=== PATIENT | male | born 1985 | race Asian ===

== ENCOUNTER → 2018-10-11 22:32 | Emergency (ER) | payer OTHER ==
[~2018-10-11 22:32] MED LIST: Bacitracin OINTMENT* 0.5% 0.5 oz TUBE TOPICAL ONE; Tetan/Diph/Pertus SYR(Tdap)* 0.5 ML SYR(BOOSTRIX) use SYR IM ONE
[2018-10-11 22:40] VITALS: BP 115/80
--- NOTE | 2018-10-12 00:35 | ED ---
Head Injury - HPI Summary HPI Summary: 33 year old [place] male presents with injury to his nose. States he was playing tennis and accidentally struck himself in the nose with his tennis racket. Report laceration to the bridge of his nose with tenderness, swelling, and bruising. Bleeding controlled prior to arrival. No LOC. Denies headache, visual disturbances, epistaxis, nasal congestion, dizziness or lightheadedness, or other injury. Last tetanus 2007. - History Of Current Complaint Chief Complaint: EDLacSutureRecheck Stated Complaint: LAC ON NOSE PER PT FRIEND Time Seen by Provider: 10/11/18 23:42 Hx Obtained From: Patient, [employer] Dealer Pain Intensity: 3 - Allergies/Home Medications Allergies/Adverse Reactions: Allergies Allergy/AdvReac Type Severity Reaction Status Date / Time No Known Allergies Allergy Verified 10/11/18 22:41 Home Medications: Home Medications NK [No Home Medications Reported] 10/11/18 [History Confirmed 10/11/18] PMH/Surg Hx/FS Hx/Imm Hx Previously Healthy: Yes - Denies significant PMH - Immunization History Date of Tetanus Vaccine: 2007 Infectious Disease History: No Infectious Disease History: Denies: Traveled Outside the [place] in Last 30 Days - Family History Known Family History: Positive: Non-Contributory - Social History Occupation: Student Lives: Dormitory/Roommates Alcohol Use: None Substance Use Type: Reports: None Smoking Status (MU): Never Smoked Tobacco Review of Systems Constitutional: Negative Negative: Photophobia, Blurred Vision, Diplopia Negative: Epistaxis, Nasal Discharge Cardiovascular: Negative Respiratory: Negative Gastrointestinal: Negative Genitourinary: Negative Musculoskeletal: Negative Positive: Other - See HPI Negative: Headache All Other Systems Reviewed And Are Negative: Yes Physical Exam - Summary Physical Exam Summary: GENERAL APPEARANCE: Well developed, well nourished, alert and cooperative, and appears to be in no acute distress. EYES: Conjunctiva clear. No drainage. PERRL, EOM intact. Vision is grossly intact. EARS: External auditory canals and tympanic membranes clear, hearing grossly intact. NOSE: Superficial 0.8 cm linear laceration to the bridge of the nose with margins well approximated and bleeding controlled. mild swelling and ecchymosis. Mild tenderness to the nasal bone, no deformity or crepitus. No nasal discharge. THROAT: Pharynx normal No tonsilar inflammation, swelling, exudate, or lesions. Uvula midline. Oral cavity normal. Teeth and gingiva in good general condition. NECK: Neck supple, non-tender. CARDIAC: Normal S1 and S2. No S3, S4 or murmurs. Rhythm is regular. There is no peripheral edema, cyanosis or pallor. Extremities are warm and well perfused. Capillary refill is less than 2 seconds. Peripheral pulses intact. LUNGS: Clear to auscultation without rales, rhonchi, wheezing or diminished breath sounds. ABDOMEN: Positive bowel sounds. Soft, nondistended, nontender. No guarding or rebound. No masses or hepatosplenomegally. MUSKULOSKELETAL: ROM intact to all extremities. No joint erythema or tenderness. Normal muscular development. Normal gait. SKIN: Skin normal color, texture and turgor. Triage Information Reviewed: Yes Vital Signs On Initial Exam: Initial Vitals Temp Pulse Resp BP Pulse Ox 99.3 F 75 16 115/80 97 10/11/18 22:35 10/11/18 22:35 10/11/18 22:35 10/11/18 22:35 10/11/18 22:35 Vital Signs Reviewed: Yes Diagnostics - Vital Signs Vital Signs Temp Pulse Resp BP Pulse Ox 10/11/18 22:35 99.3 F 75 16 115/80 97 - Laboratory Lab Statement: Any lab studies that have been ordered have been reviewed, and results considered in the medical decision making process. Head Injury Course/Dx Course Of Treatment: 33 year old [place] male presents with injury to his nose. States he was playing tennis and accidentally struck himself in the nose with his tennis racket. Report laceration to the bridge of his nose with tenderness, swelling, and bruising. Bleeding controlled prior to arrival. No LOC. Denies headache, visual disturbances, epistaxis, nasal congestion, dizziness or lightheadedness, or other injury. Last tetanus 2007. Afebrile. VSS. Exam remarkable for a superficial 0.8 cm linear laceration to the bridge of his nose. Wound margins were in good alignment and did not require repair. There was mild tenderness, ecchymosis, and swelling to the bridge of the nose without deformity or crepitus. Discussed with patient that there is a possibility of a non-displaced fracture of the nose however treatment would not change based on radiological findings therefore x-rays were deferred at this time. His tetanus status was updated. He is to follow up with ENT in 5 days if symptoms do not improve or for any concerns regarding the injury. Wound care, anticipatory guidance, and warning symptoms were reviewed with the patient. Verbalizes understanding and agrees with POC. The entirity of this evaluation was conducted through an interpretor. - Diagnoses Differential Diagnosis/HQI/PQRI: Concussion Without LOC, Contusion, Laceration, Nasal Fracture Provider Diagnoses: Nasal laceration, Nasal contusion Discharge - Sign-Out/Discharge Documenting (check all that apply): Patient Departure Patient Received Moderate/Deep Sedation with Procedure: No - Discharge Plan Condition: Stable Disposition: HOME Patient Education Materials: Nasal Fracture (ED), Laceration (ED) Referrals: No Primary Care Phys,NOPCP [Primary Care Provider] - Missael Medina MD [Medical Doctor] - 5 Days (Follow up within 5 days if symptoms do not improve. Call for appointment.) Additional Instructions: The laceration of your nose is very superficial and does no require any repair. Clean the wound at least twice a day with a mild soap and water and then apply an antibiotic ointment such as bacitracin at least twice a day. Watch for signs of infection including fever greater than 100.5 F, redness that spreads, increased swelling, or pus draining from the wound. Seek immediate medical attention should any of these occur. I suspect that you have a contusion (bruise) of the nose. There may be a small fracture however your nose is in good alignment and there would be no further treatment even if there is a fracture. These usually heal well on their own. Apply ice to your nose for 15-20 minutes at least 4 times a day to reduce swelling. Use acetaminophen (Tylenol) or ibuprofen (Advil, Motrin) as needed for pain. Follow up with Dr. Medina, ENT, in 5 days if symptoms do not improve. Call for an appointment. Return to the emergency room if you have severe headache not managed with acetaminophen or ibuprofen, you have changes in vision, develop confusion, lose consciousness, or have any worsening of symptoms. - Billing Disposition and Condition Condition: STABLE Disposition: Home Images - Images Head: 1 - Superficial 0.8 cm linear laceration with wound margins well approximated and bleeding controlled. Mild eccymosis and swelling noted to bridge of nose.
== END | disposition home or self-care (01) ==
LOC: ED 22:32
DX: S01.21XA Laceration without foreign body of nose, initial encounter (principal); S00.33XA Contusion of nose, initial encounter; W22.8XXA Striking against or struck by other objects, initial encounter; Y93.73 Activity, racquet and hand sports; Y92.9 Unspecified place or not applicable
CPT/HCPCS: 90471; 99282